=== PATIENT | male | born 1975 | race Native Hawaiian/Other Pacific Islander ===

== ENCOUNTER 2020-11-02 11:44 | Emergency (ER) | payer SELFPAY ==
--- NOTE | 2020-11-02 13:11 | Event Note ---
ED Screening Note Date of service: 11/02/20 Time: 13:06 ED Screening Note: This initial assessment/diagnostic orders/clinical plan/treatment(s) is/are subject to change based on patients health status, clinical progression and re- assessment by fellow clinical providers in the ED. Further treatment and workup at subsequent clinical providers discretion. Patient/guardian urged not to elope from the ED as their condition may be serious if not clinically assessed and managed. Initial orders include: 44-year-old male was at work this morning and he states that both his hands were shaking he rested for an hour but had no relief and then heat then called 911. Since arrival to the emergency room the shakes has stopped he is now complaining of feeling hungry patient states he did not pass out he felt weak in both his hands were shaking. He also admits to drinking a lot of water and peeing a lot which he associated to the fact that he was drinking more he denies drugs and alcohol use he denies any chest pain shortness of breath no fever no cough and no prior symptoms as these. He has no known chronic medical conditions and no previous surgeries
[2020-11-02 14:10] LABS: Hematocrit 42.8 % (35.5-45.6); Hemoglobin 14.5 gm/dl (11.8-15.2); Mean Corpuscular HGB Conc 34 % (32-34); Mean Corpuscular Volume 92 fl (84-94); Platelet Count 301 K/mm3 (140-440); Red Blood Count 4.63 M/mm3 (3.65-5.03); Red Cell Distribution Width 13.6 % (13.2-15.2)
[2020-11-02 14:35] LABS: Blood Urea Nitrogen 9 mg/dL (9-20); Calcium 9.1 mg/dL (8.4-10.2); Hemolysis Index 7
[2020-11-02 14:39] LABS: BUN/Creatinine Ratio 15
[2020-11-02 15:18] VITALS: BP 114/81
--- NOTE | 2020-11-02 15:23 | Emergency Department Report ---
ED General Adult HPI - General Chief complaint: Syncope Stated complaint: SYNCOPE Source: patient, EMS Mode of arrival: Ambulatory Limitations: No Limitations, Language Barrier - History of Present Illness Initial comments: 44-year-old male states that this morning while at work both his hands were shaking and he felt a little weak he denies any syncopal episode. Patient states he did not have chest pain he did not have shortness of breath his hands were shaking like he was nervous and he felt a little weak. He denies any past medical history he states he has been drinking lots of water and urinating a lot. He denies any fever he denies any abdominal pain no nausea no vomiting. Pharmacy Affairs Assistant Tahmina ID number [id number] used for this evaluation -: Sudden, This morning Severity scale (0 -10): 0 Associated Symptoms: malaise, weakness ( generally feeling weak). denies: confusion, chest pain, cough, fever/chills Treatments Prior to Arrival: none - Related Data Allergies Allergy/AdvReac Type Severity Reaction Status Date / Time No Known Allergies Allergy Unverified 11/02/20 12:25 ED Review of Systems ROS: Stated complaint: SYNCOPE Other details as noted in HPI Comment: All other systems reviewed and negative Constitutional: malaise, weakness. denies: chills, fever ENT: denies: as per HPI, ear pain, throat pain, dental pain, hearing loss, epistaxis, congestion Respiratory: denies: cough, orthopnea Cardiovascular: denies: chest pain, palpitations, dyspnea on exertion, orthopnea Endocrine: increased thirst (He relates his increased thirst and urination to the fact that he is drinking lots of water), increased urine. denies: excessive sweating, intolerance to cold, increased hunger Gastrointestinal: denies: abdominal pain, nausea, vomiting, diarrhea, constipation, hematemesis, hematochezia Musculoskeletal: denies: back pain, joint swelling, arthralgia Skin: denies: lesions, change in color, change in hair/nails Neurological: denies: headache Psychiatric: denies: as per HPI ED Past Medical Hx - Past Medical History Previous Medical History?: Yes Additional medical history: dizziness - Surgical History Past Surgical History?: No - Social History Smoking Status: Never Smoker Substance Use Type: None ED Physical Exam - General Limitations: No Limitations General appearance: alert, in no apparent distress - Head Head exam: Present: atraumatic - Eye Eye exam: Present: normal appearance - ENT ENT exam: Present: normal exam, TM's normal bilaterally - Neck Neck exam: Present: normal inspection, full ROM - Respiratory Respiratory exam: Present: normal lung sounds bilaterally. Absent: respiratory distress, wheezes - Cardiovascular Cardiovascular Exam: Present: regular rate, normal heart sounds - GI/Abdominal GI/Abdominal exam: Present: soft, distended - Rectal Rectal exam: Absent: deferred - exam: Present: normal inspection External exam: Present: normal external exam - Extremities Exam Extremities exam: Present: normal inspection, normal capillary refill - Neurological Exam Neurological exam: Present: alert, oriented X3, CN II-XII intact, normal gait - Psychiatric Psychiatric exam: Present: normal affect, anxious - Skin Skin exam: Present: warm, dry, intact ED Course Vital Signs 11/02/20 11/02/20 12:25 15:17 Temperature 98.3 F 98.0 F Pulse Rate 66 58 L Respiratory 20 16 Rate Blood Pressure 110/74 Blood Pressure 114/81 [Right] O2 Sat by Pulse 99 99 Oximetry ED Medical Decision Making - Lab Data Result diagrams: 11/02/20 13:32 11/02/20 13:32 - Medical Decision Making 44-year-old male this morning when he arrived at work his hands felt tremulous and he was feeling a little fatigued he denies any other symptoms no nausea no vomiting no chest pain no shortness of breath no headache no dizziness no coughing. He rested for an hour but had no improvement and then he came to the emergency room since being in the emergency room patient has had no symptoms of tremors of his hands he has been awake alert and oriented in no distress. Blood work done his CBC and chemistry has no acute findings. Findings discussed with patient patient states he feels better he is just hungry and he admits to being under a lot of stress lately I discussed follow-up with patient primary care doctor with the patient he agrees to the plan and feels ready to go home - Differential Diagnosis Tremors nervousness anxiety stress Critical Care Time: No Critical care attestation.: If time is entered above; I have spent that time in minutes in the direct care of this critically ill patient, excluding procedure time. ED Disposition Clinical Impression: Tremor of both hands, Stress reaction Disposition: -01 TO HOME OR SELFCARE Is pt being admited?: No Does the pt Need Aspirin: No Condition: Stable Instructions: Essential Tremor, Stress, Adult Additional Instructions: Rest continue to drink lots of water please follow-up with your primary care doctor or the doctor that I referred you to in 3 to 5 days. Return to the emergency room if you develop any worsening symptoms. Referrals: PRIMARY CAREMD [Primary Care Provider] - 3-5 Days DEMETRIO RANGEL MD [Staff Physician] - 3-5 Days Time of Disposition: 15:27 Print Language: BELARUSIAN
== END 2020-11-02 15:48 | disposition home or self-care (01) ==
LOC: EDBD → ED 11:44
DX: F43.0 Acute stress reaction (principal); R25.1 Tremor, unspecified
CPT/HCPCS: 36415; 80048; 85027; 99283